=== PATIENT | female | born 1970 | race American Indian/Alaskan Native ===

== ENCOUNTER 2019-06-11 11:35 | Outpatient (CLI) | payer BC ==
--- NOTE | 2019-06-12 15:21 | Mammography Report ---
DIGITAL SCREENING MAMMOGRAM WITH CAD, 06/11/2019 INDICATION: Routine screening mammography. TECHNIQUE: Digital bilateral 2D mammography was obtained in the craniocaudal and mediolateral obliq ue projections. This examination was interpreted with the benefit of Computer-Aided Detection analysi s. COMPARISON: 01/24/2012 FINDINGS: Breast Density: The breasts are heterogeneously dense, which may obscure small masses. There is no evidence of dominant mass, suspicious calcifications or architectural distortion in the l eft breast. Right asymmetries on both views require additional imaging. IMPRESSION: Right asymmetries require additional imaging. Recommend recall for right lateral medial a nd spot compression MLO and CC views and right breast ultrasound if needed. Follow up recommendation: Special View: Spot Category 0: Incomplete. Needs additional imaging evaluation and/or prior mammograms for comparison. A "normal" or negative report should not discourage follow up or biopsy of a clinically significant f inding. A written summary of these findings will be mailed to the patient. The patient will be entered into a mammography reporting system which will generate a reminder letter for the patient's next appointmen t at the appropriate interval. [employer] recommends yearly mammograms starting at age 40 and continuing as l denys as a woman is in good health. Breast MRI is recommended for women with an approximate 20-25% or greater lifetime risk of breast cancer, including women with a strong family history of breast or ova [place] cancer or who have been treated for Hodgkin's disease. Signer Name: Tello Garner MD Signed: 06/12/2019 3:17 PM Workstation Name: [id number]
== END 2019-06-11 11:36 | disposition home or self-care (01) ==
LOC: SPVWC 11:35
PROVIDERS: ATTEND Hospitalist
DX: Z12.31 Encounter for screening mammogram for malignant neoplasm of breast (principal)
CPT/HCPCS: 77067